=== PATIENT | female | born 1990 | race Caucasian/White ===

== ENCOUNTER → 2025-05-27 | Outpatient (CLI) | payer SELFPAY ==
--- NOTE | 2025-05-27 13:56 | BI_ITS ---
EXAM: DIAG MAMM W/CAD, BILAT; BREAST LIMITED UNILATERAL; BILAT BRST NOHELIA STAND ALONE 05/27/2025 CLINICAL HISTORY: F, Age 34 y/o , ABD MAMM TECHNIQUE: Procedure Code: [id number]; USBRSTLIMIT; BIBILATBRTOM Modality: MG; US Procedure: DIAG MAMM W/CAD, BILAT; BREAST LIMITED UNILATERAL; BILAT BRST NOHELIA STAND ALONE. COMPARISON: Baseline examination, no priors. FINDINGS: MAMMOGRAM: TISSUE DENSITY: The breasts are heterogeneously dense, which may obscure small masses. The mammogram demonstrates that the patient has dense breasts. Supplemental screening with whole breast ultrasound or MRI may be considered for further evaluation. Right breast: There is a triangle skin marker indicating the area of palpable concern in the lower inner right breast. Underlying the skin marker there is a patch of dense fibroglandular tissue. Otherwise, there are no suspicious findings in the right breast. Left breast: No significant masses, calcifications or other abnormalities are identified. ULTRASOUND: Ultrasound performed of the lower-inner quadrant of the right breast in the area of patient's reported palpable concern demonstrates an island of dense tissue at 5 o'clock 9 cm from the nipple. Otherwise, there are no suspicious solid masses or abnormal cystic elements. BI/Bilat Brst Nohelia Stand Alone IMPRESSION: The area of patient's palpable concern in the right breast correlates to an are a of normal fibroglandular tissue. There is no evidence of malignancy in either breast. OVERALL FINAL ASSESSMENT BI-RADS 2: BENIGN RECOMMENDATION: Routine annual follow-up in 1 Year Additional Recommendation none A letter with findings and recommendations will be mailed to the patient. Reading Location: [id number]
--- NOTE | 2025-05-27 13:56 | BI_ITS ---
EXAM: DIAG MAMM W/CAD, BILAT; BREAST LIMITED UNILATERAL; BILAT BRST NOHELIA STAND ALONE 05/27/2025 CLINICAL HISTORY: F, Age 34 y/o , ABD MAMM TECHNIQUE: Procedure Code: [id number]; USBRSTLIMIT; BIBILATBRTOM Modality: MG; US Procedure: DIAG MAMM W/CAD, BILAT; BREAST LIMITED UNILATERAL; BILAT BRST NOHELIA STAND ALONE. COMPARISON: Baseline examination, no priors. FINDINGS: MAMMOGRAM: TISSUE DENSITY: The breasts are heterogeneously dense, which may obscure small masses. The mammogram demonstrates that the patient has dense breasts. Supplemental screening with whole breast ultrasound or MRI may be considered for further evaluation. Right breast: There is a triangle skin marker indicating the area of palpable concern in the lower inner right breast. Underlying the skin marker there is a patch of dense fibroglandular tissue. Otherwise, there are no suspicious findings in the right breast. Left breast: No significant masses, calcifications or other abnormalities are identified. ULTRASOUND: Ultrasound performed of the lower-inner quadrant of the right breast in the area of patient's reported palpable concern demonstrates an island of dense tissue at 5 o'clock 9 cm from the nipple. Otherwise, there are no suspicious solid masses or abnormal cystic elements. BI/DIAG MAMM W/CAD, BILAT IMPRESSION: The area of patient's palpable concern in the right breast correlates to an are a of normal fibroglandular tissue. There is no evidence of malignancy in either breast. OVERALL FINAL ASSESSMENT BI-RADS 2: BENIGN RECOMMENDATION: Routine annual follow-up in 1 Year Additional Recommendation none A letter with findings and recommendations will be mailed to the patient. Reading Location: [id number]
== END | disposition home or self-care (01) ==
PROVIDERS: PCP Nurse Practitioner Family; Referring Provider Nurse Practitioner Family; Visit Provider Nurse Practitioner Family
DX: N63.14 Unspecified lump in the right breast, lower inner quadrant (principal); Z80.3 Family history of malignant neoplasm of breast
CPT/HCPCS: 76642; 77062; 77066; G0279